=== PATIENT | female | born 2005 | race Hispanic/Latino ===

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

== ENCOUNTER 2024-11-24 14:28 | Outpatient (CLI) | payer OTHER | END 2024-11-24 14:29 | disposition home or self-care (01) | LOC: CSHULT 14:28 | PROVIDERS: ATTEND Nurse Practitioner Family | DX: N92.1 Excessive and frequent menstruation with irregular cycle (principal) | CPT/HCPCS: 76856 ==